=== PATIENT | male | born 1955 | race Caucasian/White ===

== ENCOUNTER → 2024-08-26 09:06 | Outpatient (CLI) | payer OTHER, SELFPAY ==
--- NOTE | 2024-08-26 09:11 | DI.NM.S_ITS ---
PROCEDURE: NM BRISA PERF SPECT REST & STR Rest and exercise myocardial perfusion SPECT with gated imaging and ejection fraction RADIOPHARMACEUTICAL: 11.5 mCi Tc-99m sestamibi IV at rest and 25 mCi Tc-99m sestamibi IV at peak exercise. A one day-protocol was performed. INDICATIONS: HTN/CHEST PAIN/CORONARY ARTERIOSCLEROSIS TECHNIQUE: Radiopharmaceutical was injected at peak stress test, and also at rest. SPECT images were obtained. SPECT myocardial perfusion images were displayed in short axis, horizontal long axis, and vertical long axis views. Gated images were reviewed using [employer] software. COMPARISON: None. CARDIAC STRESS: A standard Shane treadmill exercise tolerance test was performed by the patient under the supervision of an attending staff. The patient exercised for 10 minutes and 18 seconds; functional aerobic impairment (CIRA) is -21%. Hemodynamic data: There is normal blood pressure and heart rate response to exercise stress. Patient achieved 94% of maximum predicted heart rate at peak exercise. Symptoms: Patient denied chest pain during exercise. EKG: No diagnostic EKG changes of ischemia; no ectopy. FINDINGS: Raw data: There is good myocardial labeling by radiotracer. No significant motion artifacts. Bukn-bw-adzbr ratio is 0.25 (normal is less than 0.38 for sestamibi tracer, and less than 0.50 for thallium tracer). Left ventricle function: Gated images demonstrate normal left ventricle wall thickening. No segmental wall motion abnormality. No transient ischemic dilation; TID is 0.79 (normal less than 1.3). The left ventricle resting end-diastolic volume is 126 mL. Left ventricle stress ejection fraction is 70%; normal values are above 45%. Myocardial perfusion: Moderately intense fixed apical defect that resolves with prone imaging, suggesting artifact. No ischemia and no infarction present. IMPRESSION: Low risk, normal treadmill nuclear stress test from inducible ischemia standpoint. 1) Moderately intense fixed apical defect that resolves with prone imaging, suggesting artifact. No ischemia and no infarction present. 2) Normal left ventricular size, wall motion, and systolic function (EF post stress 70%). 3) No diagnostic ST changes during exercise or recovery. 4) No angina during the study. 5) Good exercise tolerance (10.1METS, CIRA -21%). 94% of maximum predicted heart rate reached. Appropriate BP response to exercise. 6) No prior nuclear stress test available for comparison. Dictated by: Ryan Quinteros MD on 08/27/2024 at 13:53 Approved by: Ryan Quinteros MD on 08/27/2024 at 13:56
== END ==
PROVIDERS: PCP Family Medicine; Referring Provider Family Medicine; Visit Provider Family Medicine
DX: I25.10 Atherosclerotic heart disease of native coronary artery without angina pectoris (principal); I10 Essential (primary) hypertension; R07.89 Other chest pain; E78.2 Mixed hyperlipidemia
CPT/HCPCS: 78452; 93017; A9502

== ENCOUNTER → 2024-10-28 08:04 | Outpatient (CLI) | payer MEDICARE, SELFPAY ==
--- NOTE | 2024-10-28 08:05 | DI.RAD.S_ITS ---
PROCEDURE: XR THORACIC SPINE 2V INDICATIONS: Chronic neck/back pain TECHNIQUE: 2 views of the thoracic spine were acquired. COMPARISON: None. FINDINGS: Bones: No fractures or dislocations. No suspicious bony lesions. 12 pairs of ribs are noted, and appear intact where visualized. Soft tissues: No paravertebral stripe thickening. IMPRESSION: No acute bony abnormality. Dictated by: Fazal Jeter M.D. on 10/28/2024 at 17:35 Approved by: Fazal Jeter M.D. on 10/28/2024 at 17:36
--- NOTE | 2024-10-28 08:05 | DI.ECHO.S_ITS ---
[facility] +---------+ Hospital : : [address] : : [place] : : [id number] : : Phone: [phone] Echocardiogram Report + + :Name: MARISA PEARL Study Date: 10/28/2024 Height: 69.5 in: :[facility] ReadingLocation: Weight: 166 lb : : Gender: Male BSA: 1.9 m2 : :: 1955 Age: 68 yrs BP: 143/93 mmHg: :Reason For Study: SYSTOLIC MURMUR : :Ordering Physician: JARRED, : :FARIHA Maki Performed By: Maegan Schilling : :Referring: FAIRHA STERN : + + Interpretation Summary 1. The left ventricular contractility is borderline. Estimate ejection fraction is 50 to 55% with no segmental wall motion abnormalities. No LVH. Grade 1 diastolic dysfunction. 2. The right ventricular contractility is normal. 3. All cardiac chambers are of normal size. 4. Mild aortic stenosis noted with mean gradient of 9 mmHg. Dimensionless index of 0.35. 5. No obvious intracardiac shunts. 6. No obvious intracardiac masses or thrombi. 7. No hemodynamically significant pericardial effusion. 8. Low right-sided filling pressures. Conclusion: Low normal left ventricular systolic function with mild aortic valvular stenosis. Procedure: A two-dimensional transthoracic echocardiogram with color flow and Doppler was performed. The study quality was technically adequate. There is no prior echocardiogram noted for this patient. The patient was in sinus bradycardia with heart rates between 57-67 bpm during the exam. Left Ventricle: The left ventricle is normal in size and wall thickness. The ejection fraction is estimated to be 50-55%. Right Ventricle: The right ventricle is normal in size and function. Atria: The left atrial size is normal. Right atrial size is normal. There is no Doppler evidence for an interatrial shunt. Mitral Valve: There is mild mitral annular calcification. The mitral valve leaflets appear to open well. There is no mitral regurgitation noted. Aortic Valve: The aortic valve is moderately calcified. There is mild aortic stenosis. The peak aortic velocity is 2.0 m/sec. The aortic valve mean gradient is 9.0 mmHg. The calculated aortic valve area is 1.3 cm2. No aortic regurgitation is present. Tricuspid Valve: There is tricuspid annular calcification. The tricuspid valve leaflets are thin and pliable. There is trace tricuspid regurgitation. Pulmonary artery pressures cannot be estimated because of the lack of a measurable TR jet velocity. Pulmonic Valve: The pulmonic valve leaflets are thin and pliable; valve motion is normal. There is no pulmonic valvular regurgitation. Great Vessels: The aortic root is normal size. The dimensions of the ascending aorta are normal. The IVC is of normal diameter and collapses greater than 50% with a sniff. This suggests a low right atrial pressure of 3 mm Hg. Pericardium/ Pleura There is no pericardial effusion. There is no pleural effusion. MMode/2D Measurements & Calculations LVIDd: 4.9 cm LVOT diam: 2.2 cm LVIDs: 3.5 cm Ao root diam: 3.0 cm FS: 29.6 % asc Aorta Diam: 3.4 cm EPSS: 1.7 cm Ao Arch Diam (Prox Trans): 3.0 cm IVSd: 0.82 cm LVPWd: 0.92 cm LV garza. diameter/BSA (cm/m^2): 2.6 LV sys. diameter/BSA (cm/m^2): 1.8 LA A2 area: 21.5 cm2 RA long axis: 4.5 cm LA A4 area: 15.0 cm2 RA area: 14.0 cm2 LA length (vol): 5.1 cm RA vol: 37.2 ml LA vol: 53.9 ml RA : 19.4 ml/m2 LA vol index: 28.1 ml/m2 IVC diam: 1.0 cm RVD1 (basal): 3.9 cm RVD2 (mid): 3.0 cm TAPSE: 1.9 cm Doppler Measurements & Calculations Ao V2 max: 205.3 cm/sec LVOT Max Robert: 72.8 cm/sec Ao V2 mean: 142.1 cm/sec LV V1 max P.1 mmHg Ao max P.3 mmHg LV V1 VTI: 15.6 cm Ao mean P.0 mmHg PARTH(I,D): 1.3 cm2 Ao V2 VTI: 44.9 cm PARTH(V,D): 1.3 cm2 sev ratio: 0.35 PARTH indexed to BSA (cm^2/m^2): 0.69 MV E max robert: 56.5 cm/sec PA V2 max: 112.0 cm/sec MV A max robert: 58.2 cm/sec PA V2 mean: 69.7 cm/sec MV E/A: 0.97 PA mean P.3 mmHg Med Peak E' Robert: 5.2 cm/sec PA pr(Accel): 32.8 mmHg E/E' med: 10.9 Lat Peak E' Robert: 8.0 cm/sec E/E' lat: 7.0 E/e' average: 9.0 MV dec time: 0.27 sec Pulm A Revs Robert: 22.4 cm/sec SV(LVOT): 59.1 ml Pulloren Daniels Revs Dur: 0.12 sec Reading Physician:PIPPA
--- NOTE | 2024-10-28 08:05 | DI.RAD.S_ITS ---
PROCEDURE: XR CERVICAL SPINE 2V OR 3V INDICATIONS: Chronic neck/back pain TECHNIQUE: 3 view(s) of the cervical spine were acquired. COMPARISON: None. FINDINGS: Bones: No fractures or dislocations to the T1 level. Moderate degenerative changes include moderate disc space loss at the C5-6 and C6-7 levels with associated anterior osteophytosis. Advanced multilevel bilateral facet hypertrophy noted. The lateral masses of C1 are suboptimally viewed on the odontoid view. No suspicious bony lesions. Soft tissues: No prevertebral soft tissue swelling. IMPRESSION: Degenerative change of the cervical spine without evidence of acute osseous abnormality. Dictated by: Fazal Jeter M.D. on 10/28/2024 at 17:30 Approved by: Fazal Jeter M.D. on 10/28/2024 at 17:32
--- NOTE | 2024-10-28 08:05 | DI.RAD.S_ITS ---
PROCEDURE: XR LUMBAR SPINE 2-3V INDICATIONS: Chronic neck/back pain TECHNIQUE: 3 views of the lumbar spine were acquired. COMPARISON: None. FINDINGS: Bones: 5 [id number] vertebrae are present. Severe L4-5 and moderate to severe L3-4 and L5-S1 disc space loss noted. Mild to moderate multilevel anterior osteophytosis. Minimal grade 1 retrolisthesis L3 on L4 noted. There is otherwise normal bony alignment. No vertebral body compression fractures. No suspicious bony lesions. Soft tissues: Overlying bowel gas pattern is normal. No suspicious soft tissue calcifications. IMPRESSION: Multilevel spondylosis without evidence of acute osseous abnormality. Dictated by: Fazal Jeter M.D. on 10/28/2024 at 17:36 Approved by: Fazal Jeter M.D. on 10/28/2024 at 19:18
== END ==
LOC: ECHO 08:05
PROVIDERS: PCP Family Medicine; Referring Provider Family Medicine; Visit Provider Family Medicine
DX: I34.81 Nonrheumatic mitral (valve) annulus calcification (principal); I35.0 Nonrheumatic aortic (valve) stenosis; M47.812 Spondylosis without myelopathy or radiculopathy, cervical region; M47.816 Spondylosis without myelopathy or radiculopathy, lumbar region; I10 Essential (primary) hypertension; R01.1 Cardiac murmur, unspecified; M54.2 Cervicalgia; M54.9 Dorsalgia, unspecified; G89.29 Other chronic pain
CPT/HCPCS: 72040; 72070; 72100; 93306

== ENCOUNTER → 2025-07-04 07:22 | Outpatient (CLI) | payer MEDICARE, SELFPAY ==
[2025-07-04 08:25] LABS: Hematocrit 43.6 % (41-53); Hemoglobin 15.1 g/dL (13.5-17.5); Mean Corpuscular HGB Conc 34.6 % (30-36); Mean Corpuscular Hemoglobin 29.6 PG (26-34); Mean Corpuscular Volume 85.6 fL (80-100); Platelet Count 206 X10^3/uL (150-400)
[2025-07-04 08:31] LABS: Hemoglobin A1C% w Est Avg Glu 5.4 % (4.0-6.0)
[2025-07-04 08:45] LABS: Alanine Aminotransferase 26 IU/L (<50); Albumin 4.2 g/dL (3.5-5.0); Albumin Globulin Ratio 1.6 (1.0-2.8); Alkaline Phosphatase 97 U/L (38-126); Blood Urea Nitrogen 12 mg/dL (9-20); Calcium 9.2 mg/dL (8.4-10.2); Carbon Dioxide 28 mmol/L (22-32); Chloride 103 mmol/L (98-107); Cholesterol 123 mg/dL (140-199); Estimated Glomerular Filt Rate > 60 mL/min (>60); Globulin 2.7 g/dL (1.7-4.1); Glucose 97 mg/dL (70-99); HDL Cholesterol 44 mg/dL (40-60); HEMOLYSIS 20 (0-50); Potassium 4.3 mmol/L (3.4-5.1); Sodium 139 mmol/L (137-145); Total Protein 6.9 g/dL (6.3-8.2); Triglycerides 117 mg/dL (35-150)
[2025-07-04 09:33] LABS: Hep C Virus Ab w/Reflex Quant NEGATIVE s/c (NEGATIVE)
== END ==
PROVIDERS: PCP Family Medicine; Referring Provider Family Medicine; Visit Provider Family Medicine
DX: E78.5 Hyperlipidemia, unspecified (principal); Z13.1 Encounter for screening for diabetes mellitus; Z12.5 Encounter for screening for malignant neoplasm of prostate; Z13.9 Encounter for screening, unspecified; I10 Essential (primary) hypertension
CPT/HCPCS: 36415; 80053; 80061; 82043; 82570; 83036; 85027; 86803; G0103

== ENCOUNTER → 2025-08-22 10:11 | Outpatient (CLI) | payer MEDICARE, SELFPAY | PROVIDERS: PCP Family Medicine; Referring Provider Family Medicine; Visit Provider Family Medicine | DX: Z12.11 Encounter for screening for malignant neoplasm of colon (principal); K63.5 Polyp of colon | CPT/HCPCS: 82274 ==